=== PATIENT | male | born 1955 | race Caucasian/White ===

== ENCOUNTER 2016-11-16 11:01 | Inpatient (IN) | payer MEDICAID ==
[~2016-11-16] VITALS: Ht 167.6 cm; Wt 95.7 kg
[2016-11-16 11:01] VITALS: BP_SYST 162
[2016-11-16] MEDS ORDERED: ASPIRIN 325 MG TABLET PO ONE (12:15)
[2016-11-16] MEDS ORDERED: MORPHINE 2 MG/ML INJ. SYRINGE IVP ONE (12:30)
[2016-11-16 12:46] LABS: BASOPHILS # (AUTO) 0.1 K/uL (0.0-0.2); BASOPHILS % (AUTO) 0.5 % (0.0-2.0); EOSINOPHILS # (AUTO) 0.1 K/uL (0.0-0.4); EOSINOPHILS % (AUTO) 0.9 % (0.0-4.0); HEMATOCRIT 46.6 % (36-54); HEMOGLOBIN 15.5 g/dL (14.0-18.0); LYMPHOCYTES # (AUTO) 1.7 K/uL (1.0-5.5); LYMPHOCYTES % (AUTO) 16.1 % (20.5-51.5); MEAN CORPUSCULAR HEMOGLOBIN 31 pg (27-31); MEAN CORPUSCULAR HGB CONC 33 % (32-36); MEAN CORPUSCULAR VOLUME 93 fL (79.0-98.0); MONOCYTES # (AUTO) 0.6 K/uL (0.0-1.0); MONOCYTES % (AUTO) 5.6 % (1.7-9.3); NEUTROPHILS % (AUTO) 76.9 % (40.0-70.0); PLATELET COUNT (AUTO) 216 K/uL (130-430); RED BLOOD CELL COUNT(AUTO) 5.03 MIL/uL (4.2-6.2); RED CELL DISTRIBUTION WIDTH 12.3 % (9.0-15.0); WHITE BLOOD COUNT (AUTO) 10.5 K/uL (4.8-10.8)
[2016-11-16 12:51] LABS: CALCIUM 9.1 mg/dL (8.4-11.0); CREATININE 0.87 mg/dL (0.55-1.30); POTASSIUM 3.7 mmol/L (3.5-5.1)
[2016-11-16 12:56] LABS: ALBUMIN 3.7 g/dL (3.4-4.8); TOTAL BILIRUBIN 0.5 mg/dL (0.0-1.0); TOTAL PROTEIN, SERUM 8.2 g/dL (6.4-8.3)
[2016-11-16 16:00] VITALS: BP_SYST 156
[2016-11-16 16:22] VITALS: BP_SYST 156
[2016-11-16 20:00] VITALS: BP_SYST 140
[2016-11-16] MEDS ORDERED: MORPHINE 2 MG/ML INJ. SYRINGE IVP PRN ×2 (20:45)
[2016-11-16] MEDS ORDERED: HYDROcodone/ACETAMIN 10-325 MG TAB PO PRN (20:45)
[2016-11-16] MEDS ORDERED: ACETAMINOPHEN 325 MG TABLET PO PRN (20:45)
[2016-11-16] MEDS ORDERED: ONDANSETRON HCL 4 MG/2 ML VIAL IVP PRN (20:45)
[2016-11-16] MEDS: SIMVASTATIN 40 MG TABLET PO SCH (21:31)
[2016-11-16] MEDS: DOCUSATE SODIUM 100 MG CAPSULE PO SCH (21:31)
[2016-11-16] MEDS: NACL 0.9% 1,000 ML IV SCH (21:32)
[2016-11-16] MEDS: METOPROLOL TARTRATE 25 MG TABLET PO SCH (21:32)
[2016-11-16 21:44] LABS: PROTHROMBIN TIME 11.2 SECS (9.5-12.5)
[2016-11-16 22:09] LABS: FREE T4 (FREE THYROXINE) 0.6 ng/dL (0.6-1.6); PHOSPHORUS 3.8 mg/dL (2.7-4.5); THYROID STIMULATING HORMONE 0.39 uIu/mL (0.34-4.82)
[2016-11-17 01:24] VITALS: BP_SYST 130
[2016-11-17 04:11] LABS: BILIRUBIN,URINE NEGATIVE (NEGATIVE); CLARITY/URINE CLEAR (CLEAR); COLOR,URINE YELLOW (YELLOW); GLUCOSE,URINE NEGATIVE (NEGATIVE); KETONES,URINE NEGATIVE (NEGATIVE); LEUKOCYTE ESTERASE ,URINE NEGATIVE (NEGATIVE); NITRITE, URINE NEGATIVE (NEGATIVE); PH,URINE 7.5 (5.0-8.0); PROTEIN URINE NEGATIVE (NEGATIVE)
[2016-11-17 04:26] LABS: BLOOD, URINE TRACE (NEGATIVE)
[2016-11-17 04:29] LABS: BACTERIA,URINE FEW /HPF (None Seen); MUCUS,URINE None Seen /LPF (None Seen); RBC,URINE 0-3 /HPF (0-3); URINE AMORPHOUS PHOSPHATES 1+ /HPF (None Seen); WBC,URINE 0-3 /HPF (0-3)
[2016-11-17 05:41] VITALS: BP_SYST 140
[2016-11-17 07:36] LABS: CHOLESTEROL 189 mg/dL (<200); HDL CHOLESTEROL 40 mg/dL (>45); LDL CHOLESTEROL 139 mg/dL (<100); TRIGLYCERIDES 81 mg/dL (30-150)
[2016-11-17] MEDS: ASPIRIN 81 MG TAB.CHEW PO SCH (09:01)
[2016-11-17] MEDS: DOCUSATE SODIUM 100 MG CAPSULE PO SCH ×2 (09:01→20:49)
[2016-11-17] MEDS: LISINOPRIL 10 MG TABLET (PRINIVIL) PO SCH (09:01)
[2016-11-17] MEDS: METOPROLOL TARTRATE 25 MG TABLET PO SCH ×2 (09:02→20:51)
[2016-11-17 09:40] VITALS: BP_SYST 141
[2016-11-17 12:51] VITALS: BP_SYST 138
[2016-11-17] MEDS: NACL 0.9% 1,000 ML IV SCH (14:15)
[2016-11-17 16:03] VITALS: BP_SYST 132
[2016-11-17 20:17] VITALS: BP_SYST 117
[2016-11-17] MEDS: SIMVASTATIN 40 MG TABLET PO SCH (20:49)
[2016-11-18 00:20] VITALS: BP_SYST 117
[2016-11-18 03:17] VITALS: BP_SYST 128
[2016-11-18 08:31] LABS: BASOPHILS % (AUTO) 0.5 % (0.0-2.0); EOSINOPHILS # (AUTO) 0.2 K/uL (0.0-0.4); EOSINOPHILS % (AUTO) 2.8 % (0.0-4.0); HEMATOCRIT 47.2 % (36-54); HEMOGLOBIN 15.6 g/dL (14.0-18.0); LYMPHOCYTES # (AUTO) 2.4 K/uL (1.0-5.5); LYMPHOCYTES % (AUTO) 27.4 % (20.5-51.5); MEAN CORPUSCULAR HEMOGLOBIN 31 pg (27-31); MEAN CORPUSCULAR HGB CONC 33 % (32-36); MEAN CORPUSCULAR VOLUME 93 fL (79.0-98.0); MONOCYTES # (AUTO) 0.5 K/uL (0.0-1.0); MONOCYTES % (AUTO) 5.6 % (1.7-9.3); NEUTROPHILS # (AUTO) 5.6 K/uL (1.8-7.7); NEUTROPHILS % (AUTO) 63.7 % (40.0-70.0); PLATELET COUNT (AUTO) 178 K/uL (130-430); RED BLOOD CELL COUNT(AUTO) 5.08 MIL/uL (4.2-6.2); RED CELL DISTRIBUTION WIDTH 12.4 % (9.0-15.0); WHITE BLOOD COUNT (AUTO) 8.7 K/uL (4.8-10.8)
[2016-11-18 08:56] LABS: CALCIUM 8.8 mg/dL (8.4-11.0); CREATININE 0.74 mg/dL (0.55-1.30); PHOSPHORUS 3.4 mg/dL (2.7-4.5); POTASSIUM 3.8 mmol/L (3.5-5.1)
[2016-11-18] MEDS: ASPIRIN 81 MG TAB.CHEW PO SCH (09:49)
[2016-11-18] MEDS: DOCUSATE SODIUM 100 MG CAPSULE PO SCH (09:49)
[2016-11-18] MEDS: LISINOPRIL 10 MG TABLET (PRINIVIL) PO SCH (09:53)
[2016-11-18] MEDS: METOPROLOL TARTRATE 25 MG TABLET PO SCH (09:54)
[2016-11-18] MEDS: NACL 0.9% 1,000 ML IV SCH (10:04)
[2016-11-18] MEDS ORDERED: HYDR-4100 PO (10:25)
[2016-11-18] MEDS ORDERED: DOCU-144 PO (10:25)
[2016-11-18 10:52] VITALS: BP_SYST 131
[2016-11-18 11:26] VITALS: BP_SYST 131
[2016-11-19 02:08] LABS: T4 (THYROXINE) 6.3 ug/dL (4.5-12.0)
[2016-11-20 13:48] LABS: HEMOGLOBIN A1C 7.5 % (4.8-5.6)
== END 2016-11-18 11:46 | disposition home or self-care (01) | DRG 203 ==
LOC: SED 11:01 → STU 15:29
PROVIDERS: ADMIT Family Medicine; ATTEND Family Medicine
DX: M94.0 Chondrocostal junction syndrome [Tietze] (principal); E87.1 Hypo-osmolality and hyponatremia; I95.9 Hypotension, unspecified; I24.9 Acute ischemic heart disease, unspecified; I25.119 Atherosclerotic heart disease of native coronary artery with unspecified angina pectoris; G89.29 Other chronic pain; M54.5 Low back pain; E11.9 Type 2 diabetes mellitus without complications; I10 Essential (primary) hypertension; E78.5 Hyperlipidemia, unspecified; V89.2XXA Person injured in unspecified motor-vehicle accident, traffic, initial encounter; Y93.89 Activity, other specified; Y92.89 Other specified places as the place of occurrence of the external cause; Y99.8 Other external cause status; Z90.49 Acquired absence of other specified parts of digestive tract; I25.2 Old myocardial infarction; Z95.5 Presence of coronary angioplasty implant and graft; Z82.49 Family history of ischemic heart disease and other diseases of the circulatory system
CPT/HCPCS: 36415; 71010; 71020-TC; 80048; 80053; 80061; 81000-TC; 82150-TC; 82550-TC; 83036; 83605; 83690-TC; 83735-TC; 83880; 84100-TC; 84436; 84439; 84443-TC; 84479; 84484; 85025; 85610-TC; 87040-TC; 87081; 93005; 93306; 96374; 99285; J2270; J7030